=== PATIENT | male | born 1940 | race Caucasian/White ===

== ENCOUNTER 2023-05-24 13:36 | Inpatient (IN) | payer OTHER ==
[~2023-05-24] VITALS: Ht 172.7 cm; Wt 83.9 kg
--- NOTE | 2023-05-24 13:48 | NUR ---
EKG 1344
[2023-05-24] MEDS ORDERED: FLUO20CA39 PO (14:18)
[2023-05-24] MEDS ORDERED: BUSP10TA11 PO (14:18)
[2023-05-24] MEDS ORDERED: GABA600T13 PO (14:18)
[2023-05-24] MEDS ORDERED: PANT20TA18 PO (14:18)
[2023-05-24] MEDS ORDERED: HYDR-4069 PO (14:18)
[2023-05-24] MEDS ORDERED: AMLO2.5T2 PO (14:18)
[2023-05-24] MEDS ORDERED: SIMV-42 PO (14:18)
[2023-05-24] MEDS ORDERED: ALLO100T PO (14:19)
[2023-05-24] MEDS ORDERED: CefTRIAXone 2gm/D5W 50ml BAG 50 ML IV ONE (15:10)
[2023-05-24] MEDS ORDERED: bisacodyl 10mg suppository rectal RC ONE (15:20)
[2023-05-24] MEDS ORDERED: normal saline 1000ML IV soln IVB ONE (15:20)
[2023-05-24] MEDS ORDERED: ondansetron/PF 4mg/2ml inj IV PRN (16:20)
[2023-05-24] MEDS ORDERED: magnesium 4gm in 100ml NS 100 ML IV PRN (16:20)
[2023-05-24] MEDS ORDERED: potassium Cl 20 mEq SR tablet PO PRN ×2 (16:20)
[2023-05-24] MEDS ORDERED: acetaminophen 325mg tablet PO PRN (16:20)
[2023-05-24] MEDS ORDERED: potassium Cl 40MEQ/1/2NS 520ml 520 ML IV PRN (16:20)
[2023-05-24 16:29] LABS: BASOPHILS % (AUTO) 0.4 % (0-1); EOSINOPHILS # (AUTO) 0.4 X10'3 (0-0.9); HEMATOCRIT 47.1 % (42.0-52.0); HEMOGLOBIN 15.6 g/dl (14.0-17.9); LYMPHOCYTES # (AUTO) 1.9 X10'3 (1.1-4.8); LYMPHOCYTES % (AUTO) 20.7 % (21-51); MEAN CORPUSCULAR HEMOGLOBIN 29.8 PG (27.0-31.0); MEAN CORPUSCULAR HGB CONC 33.1 g/dL (33.0-36.5); MEAN PLATELET VOLUME 8.3 FL (7.4-10.4); MONOCYTES # (AUTO) 0.9 X10'3 (0-0.9); MONOCYTES % (AUTO) 10.1 % (2-12); NEUTROPHILS # (AUTO) 5.9 X10'3 (1.8-7.7); NEUTROPHILS % (AUTO) 64.8 % (42-75); PLATELET COUNT 254 X10'3 (140-440); RED BLOOD COUNT 5.23 X10'6 (4.70-6.10); RED CELL DISTRIBUTION WIDTH 15.2 % (11.5-14.5); WHITE BLOOD COUNT 9.1 X10'3 (4.5-11.0)
[2023-05-24] MEDS ORDERED: metoprolol tartrate 1mg/ml inj IV PRN (16:35)
[2023-05-24] MEDS ORDERED: regadenoson 0.4mg/5ml syringe IV PRN (16:35)
[2023-05-24] MEDS ORDERED: aminophylline 250mg/10ml inj. IV PRN (16:35)
[2023-05-24] MEDS ORDERED: nitroGLYCERIN 0.4mg SUBLingual tab SL PRN (16:35)
[2023-05-24 16:47] LABS: ALANINE AMINOTRANSFERASE 20 U/L (12-78); ALBUMIN 3.5 G/DL (3.4-5.0); ALKALINE PHOSPHATASE 119 IU/L (46-116); ANION GAP 8 (8-16); ASPARTATE AMINO TRANSFERASE 17 U/L (10-37); BILIRUBIN,TOTAL 0.6 MG/DL (0.1-1.0); BLOOD UREA NITROGEN 16 MG/DL (7-18); BUN/CREATININE RATIO 11.6 (10.0-20.0); CALCIUM 8.4 MG/DL (8.5-10.1); CHLORIDE 106 MMOL/L (99-107); CREATININE 1.38 MG/DL (0.60-1.10); GLUCOSE 80 MG/DL (70-104); POTASSIUM 3.8 MMOL/L (3.5-5.1); SODIUM 141 MMOL/L (135-145); TOTAL CARBON DIOXIDE 26.8 MMOL/L (24-32); TOTAL PROTEIN 7.1 G/DL (6.4-8.2); eCRCL 41 ML/MIN; eGFR 49 ML/MIN
[2023-05-24 16:56] LABS: MAGNESIUM 2.1 MG/DL (1.5-2.4); THYROID STIMULATING HORMONE 3.09 ulU/ml (0.34-4.50)
[2023-05-24] MEDS: normal saline 1000ml 1,000 ML IV SCH (19:03)
[2023-05-24 19:30] VITALS: BP 144/54; PULSE 38; RESP 16; TEMP 97.5; O2SAT 94
--- NOTE | 2023-05-24 19:30 | NUR ---
Patient in room PCU 3014B. I have received report from Haley VELASCO from ED and had the opportunity to ask questions and assume patient care. PT orientated to call light system and room, started on telemetry monitoring, VSS at this time with HR high 30's and mid to low 40's, MD aware. Will continue to monitor.
[2023-05-24 20:00] VITALS: RESP 16; O2SAT 93
[2023-05-24] MEDS: docusate sod 100mg capsule PO SCH (20:00)
[2023-05-24] MEDS: K and/or MAG REPLACEMENT MC SCH (20:00)
[2023-05-24] MEDS ORDERED: atorvastatin 10mg tablet PO SCH (21:00)
[2023-05-24] MEDS: busPIRone 5mg tablet PO SCH (21:38)
[2023-05-24] MEDS: hydrALAZINE 25 MG tablet PO SCH (21:38)
[2023-05-24 22:00] VITALS: BP 124/49; PULSE 43; RESP 16; TEMP 97.7; O2SAT 92
[2023-05-25] MEDS: heparin, porcine 5000 units/ml vial SQ SCH ×2 (00:04→08:00)
[2023-05-25 02:00] VITALS: BP 132/72; PULSE 51; RESP 16; TEMP 98; O2SAT 91
[2023-05-25] MEDS: normal saline 1000ml 1,000 ML IV SCH (02:20)
[2023-05-25] MEDS: hydrALAZINE 25 MG tablet PO SCH ×3 (02:45→13:56)
[2023-05-25 06:00] VITALS: BP 140/72; PULSE 68; RESP 12; TEMP 98; O2SAT 96
[2023-05-25] MEDS ORDERED: pantoprazole 40mg Tablet.DR PO SCH (07:30)
[2023-05-25 07:31] VITALS: BP 146/66; PULSE 61; RESP 16
[2023-05-25 08:00] VITALS: RESP 15; O2SAT 96
[2023-05-25] MEDS ORDERED: amLODIPine 2.5mg tablet PO SCH (08:00)
[2023-05-25] MEDS ORDERED: FLUoxetine 20mg capsule PO SCH (08:00)
[2023-05-25] MEDS ORDERED: CefTRIAXone/D5W-Rocephin 1gm 50 ML IV SCH (08:00)
[2023-05-25] MEDS ORDERED: allopurinol 100mg tablet PO SCH ×2 (08:00→14:46)
[2023-05-25] MEDS: K and/or MAG REPLACEMENT MC SCH (08:00)
[2023-05-25 08:02] LABS: BASOPHILS % (AUTO) 0.4 % (0-1); EOSINOPHILS # (AUTO) 0.3 X10'3 (0-0.9); EOSINOPHILS % (AUTO) 3.3 % (0-6); HEMOGLOBIN 15.3 g/dl (14.0-17.9); LYMPHOCYTES # (AUTO) 1.6 X10'3 (1.1-4.8); LYMPHOCYTES % (AUTO) 18.8 % (21-51); MEAN CORPUSCULAR HEMOGLOBIN 29.8 PG (27.0-31.0); MEAN CORPUSCULAR HGB CONC 33.3 g/dL (33.0-36.5); MEAN CORPUSCULAR VOLUME 89.5 FL (78-98); MEAN PLATELET VOLUME 8.6 FL (7.4-10.4); MONOCYTES # (AUTO) 0.6 X10'3 (0-0.9); MONOCYTES % (AUTO) 7.2 % (2-12); NEUTROPHILS # (AUTO) 5.8 X10'3 (1.8-7.7); NEUTROPHILS % (AUTO) 70.3 % (42-75); PLATELET COUNT 255 X10'3 (140-440); RED BLOOD COUNT 5.14 X10'6 (4.70-6.10); RED CELL DISTRIBUTION WIDTH 15.1 % (11.5-14.5); WHITE BLOOD COUNT 8.3 X10'3 (4.5-11.0)
[2023-05-25 08:42] LABS: ALANINE AMINOTRANSFERASE 19 U/L (12-78); ALBUMIN 3.4 G/DL (3.4-5.0); ALKALINE PHOSPHATASE 128 IU/L (46-116); ANION GAP 14 (8-16); ASPARTATE AMINO TRANSFERASE 22 U/L (10-37); BILIRUBIN,TOTAL 0.6 MG/DL (0.1-1.0); BLOOD UREA NITROGEN 14 MG/DL (7-18); BUN/CREATININE RATIO 10.2 (10.0-20.0); CALCIUM 8.3 MG/DL (8.5-10.1); CHLORIDE 106 MMOL/L (99-107); CREATININE 1.37 MG/DL (0.60-1.10); GLUCOSE 91 MG/DL (70-104); SODIUM 144 MMOL/L (135-145); TOTAL CARBON DIOXIDE 24.4 MMOL/L (24-32); TOTAL PROTEIN 6.9 G/DL (6.4-8.2); eCRCL 41 ML/MIN; eGFR 50 ML/MIN
--- NOTE | 2023-05-25 08:56 | NUR ---
Dr Ceron said to hold stress test, resting scan has been done. Pt to go back to room. Pt is sinus abigail 40-50s, symptomatic off and on with SOB, dizziness. Pt is GCS 15, a/o x3, skin pink, warm, dry, able to transfer self from bed to wheelchair with min assist
--- NOTE | 2023-05-25 09:08 | NUR ---
Message: Ralph Magana, C in [id number], stress test is on hold per Dr Ceron. Pt has HR 40-50s, symptomatic with SOB, dizziness off and on. Nita HCARLES RN
[2023-05-25] MEDS: gabapentin 300mg capsule PO SCH ×2 (09:42)
[2023-05-25] MEDS: busPIRone 5mg tablet PO SCH (09:45)
[2023-05-25] MEDS: docusate sod 100mg capsule PO SCH (09:52)
[2023-05-25 11:00] VITALS: BP 124/61; PULSE 61; RESP 12; TEMP 97.3; O2SAT 96
[2023-05-25 12:37] LABS: HEMOGLOBIN A1C 6.1 % (4.5-6.2)
[2023-05-25 12:42] LABS: CHOL/HDL RATIO 3.2 (0.00-4.99); CHOLESTEROL 162 MG/DL (0-200); HDL CHOLESTEROL 50 MG/DL (35-60); LDL CHOLESTEROL 81 MG/DL (50-100); TRIGLYCERIDES 154 MG/DL (20-135)
[2023-05-25 13:56] VITALS: BP_SYST 127; PULSE 61
[2023-05-25] MEDS ORDERED: allopurinol 300 MG tablet PO SCH (14:47)
--- NOTE | 2023-05-25 16:26 | NUR ---
Discharged to home, is at bedside for instructions, Family will assist Pt. in scheduling for cardiology followup appointments. No changes to medications at discharge, steady and oriented to person place time and situation. Questions answered and discharge instructions include a symptomatic brachycardia handout. Pt. will stay in [facility] and travel home tomorrow.
[2023-05-25] MEDS ORDERED: gabapentin 300mg capsule PO SCH (20:00)
== END 2023-05-25 15:11 | disposition home or self-care (01) | DRG 309 ==
LOC: ER 13:37 → ED HOLD 16:23 → PCU 3S 19:59
PROVIDERS: ADMIT Family Medicine; ATTEND Family Medicine
PROC: 4A02XM4 Measurement of Cardiac Total Activity, External Approach (ICD-10-PCS; principal; 2023-05-25)
PROC: 3E073KZ Introduction of Other Diagnostic Substance into Coronary Artery, Percutaneous Approach (ICD-10-PCS; 2023-05-25)
DX: R00.1 Bradycardia, unspecified (principal); N39.0 Urinary tract infection, site not specified; E78.5 Hyperlipidemia, unspecified; F43.10 Post-traumatic stress disorder, unspecified; I10 Essential (primary) hypertension; K57.90 Diverticulosis of intestine, part unspecified, without perforation or abscess without bleeding; I35.0 Nonrheumatic aortic (valve) stenosis; M10.9 Gout, unspecified; Z96.651 Presence of right artificial knee joint; Z96.611 Presence of right artificial shoulder joint; N28.9 Disorder of kidney and ureter, unspecified; Z81.8 Family history of other mental and behavioral disorders; Z82.49 Family history of ischemic heart disease and other diseases of the circulatory system; Z87.891 Personal history of nicotine dependence; Z90.49 Acquired absence of other specified parts of digestive tract; Z88.5 Allergy status to narcotic agent; Z79.899 Other long term (current) drug therapy
CPT/HCPCS: 36415; 78451; 80053; 80061; 83036; 83605; 83735; 84145; 84439; 84443; 84484; 85025; 87040; 87081; 93005; 93017; 93306; 96365; 99285; A9500; G0378; J0696; J1644; J7030